=== PATIENT | female | born 1980 | race Caucasian/White ===

== ENCOUNTER 2019-04-26 22:51 | Emergency (ER) | payer OTHER ==
--- NOTE | 2019-04-26 23:03 | ED ---
Psych HPI - General Chief Complaint: Psychiatric Symptoms Stated Complaint: Anxiety Time Seen by Provider: 04/26/19 23:01 Source: patient, RN notes reviewed, old records reviewed Mode of arrival: ambulatory - History of Present Illness Initial Comments: This is a 38-year-old female coming in for evaluation. Patient has history of anxiety coming in for anxiety attack. Patient states she has history of PTSD. 2 days of difficult night sleeping take Ativan prior to arrival with no help. Patient did she is very anxious and more anxious so because her family Do not know about her anxious past and she is concerned that they may have seen her fired found her. Patient's pacing around the room, poor strain, emotional. Denies illicit or suicidal thoughts, no drug or alcohol abuse MD Complaint: other (Anxious) -: hour(s) Associated Psychiatric Symptoms: racing thoughts History of same: Yes Quality: getting worse Improves With: none, medication Worsens With: none Context: new medication(s) Associated Symptoms: denies other symptoms Treatments Prior to Arrival: none - Related Data Home Medications Medication Instructions Recorded Confirmed Aviane 1 tab PO DIRECTED 12/18/14 04/27/19 Citalopram Hydrobromide [CeleXA] 40 mg PO DAILY 12/18/14 04/27/19 LORazepam [Ativan] 1 mg PO DAILY PRN 04/26/19 04/26/19 Allergies Allergy/AdvReac Type Severity Reaction Status Date / Time No Known Allergies Allergy Verified 04/26/19 23:59 Review of Systems ROS Statement: Those systems with pertinent positive or pertinent negative responses have been documented in the HPI. ROS Other: All systems not noted in ROS Statement are negative. Past Medical History Additional Past Medical History / Comment(s): dysautonomia History of Any Multi-Drug Resistant Organisms: None Reported Past Surgical History: Hernia Repair Past Psychological History: Anxiety, PTSD Smoking Status: Never smoker Past Alcohol Use History: None Reported Past Drug Use History: None Reported General Exam Limitations: no limitations General appearance: anxious Head exam: Present: atraumatic, normocephalic, normal inspection Eye exam: Present: normal appearance, PERRL, EOMI. Absent: scleral icterus, conjunctival injection, periorbital swelling ENT exam: Present: normal exam, mucous membranes moist Neck exam: Present: normal inspection. Absent: tenderness, meningismus, lymphadenopathy Respiratory exam: Present: normal lung sounds bilaterally. Absent: respiratory distress, wheezes, rales, rhonchi, stridor Cardiovascular Exam: Present: regular rate, normal rhythm, normal heart sounds. Absent: systolic murmur, diastolic murmur, rubs, gallop, clicks GI/Abdominal exam: Present: soft, normal bowel sounds. Absent: distended, tenderness, guarding, rebound, rigid Extremities exam: Present: normal inspection, full ROM, normal capillary refill. Absent: tenderness, pedal edema, joint swelling, calf tenderness Back exam: Present: normal inspection Neurological exam: Present: alert, oriented X3, CN II-XII intact Psychiatric exam: Present: normal affect, normal mood Skin exam: Present: warm, dry, intact, normal color. Absent: rash Course Vital Signs 04/26/19 04/27/19 22:56 01:13 Temperature 98.2 F 98.1 F Pulse Rate 139 H 99 Respiratory 22 20 Rate Blood Pressure 136/79 114/74 O2 Sat by Pulse 98 99 Oximetry Medical Decision Making - Medical Decision Making 62 female the ER for evaluation, patient presents with anxiety, anxiety reaction, symptoms improved here in the ER. Patient can be discharged home Disposition Clinical Impression: Acute anxiety Disposition: HOME SELF-CARE Condition: Good Instructions (If sedation given, give patient instructions): Anxiety (ED) Is patient prescribed a controlled substance at d/c from ED?: No Referrals: Andreas Mendez DO [Primary Care Provider] - 1-2 days
[2019-04-26] MEDS ORDERED: LORazepam 2 MG/ML INJ IM STA (23:10)
[2019-04-27] MEDS ORDERED: DIAZEPAM 5 MG TAB PO STA (00:02)
[2019-04-27 01:14] VITALS: BP 114/74; PULSE 99; RESP 20; TEMP 98.1
== END 2019-04-27 01:30 | disposition home or self-care (01) ==
LOC: EC 22:51
DX: F41.9 Anxiety disorder, unspecified (principal); Z79.3 Long term (current) use of hormonal contraceptives; Z79.899 Other long term (current) drug therapy
CPT/HCPCS: 99283; 96372; J2060

== ENCOUNTER 2020-10-13 21:24 | Emergency (ER) | payer OTHER ==
[2020-10-13] MEDS ORDERED: SODIUM CHLORIDE 0.9% 1,000 ML IV STA (22:15)
[2020-10-13 22:42] LABS: Basophils # (A) 0.1 k/uL (0-0.2); Basophils % (A) 1 %; Eosinophils # (A) 0.4 k/uL (0-0.7); Eosinophils % (A) 3 %; HCT 40.5 % (34.0-46.0); HGB 13.7 gm/dL (11.4-16.0); Lymphocytes # (A) 2.2 k/uL (1.0-4.8); Lymphocytes % (A) 17 %; MCH 31.1 pg (25.0-35.0); MCHC 33.7 g/dL (31.0-37.0); MCV 92.3 fL (80.0-100.0); Mean Platelet Volume 6.9; Monocytes # (A) 0.5 k/uL (0-1.0); Monocytes % (A) 4 %; Neutrophils # (A) 9.6 k/uL (1.3-7.7); Neutrophils % (A) 74 %; Platelet Count 278 k/uL (150-450); RBC 4.39 m/uL (3.80-5.40); RDW 12.3 % (11.5-15.5); WBC 12.9 k/uL (3.8-10.6)
--- NOTE | 2020-10-13 22:47 | ED ---
Syncope HPI - General Chief Complaint: Syncope Stated Complaint: Syncope Time Seen by Provider: 10/13/20 22:13 Source: patient, RN notes reviewed, old records reviewed Mode of arrival: wheelchair Limitations: no limitations - History of Present Illness Initial Comments: this is a 32-year-old female DF for evaluation of a syncopal event with history of dysautonomia and prior syncope. Patient admits to being under significant stress as of late she states she had appointment to seeher family doctor for anxiety meds tomorrow but was in her bathroom and had a fall. The fall occurred after the syncopal event. No headache chest pain shortness of breath, no abdominal pain denies chance. MD Complaint: loss of consciousness, collapsed -: minutes(s) Prodromal Symptoms: none -: second(s) Witnessed: no Injuries Sustained Associated with Event: Neck, RUE Current Symptoms: back to baseline History: previous syncopal episode Context: standing up Treatments Prior to Arrival: none - Related Data Home Medications Medication Instructions Recorded Confirmed Aviane 1 tab PO DAILY 12/18/14 10/13/20 LORazepam [Ativan] 1 mg PO DAILY PRN 04/26/19 10/13/20 Desvenlafaxine [Pristiq ER] 100 mg PO DAILY 10/13/20 10/13/20 Allergies Allergy/AdvReac Type Severity Reaction Status Date / Time No Known Allergies Allergy Verified 10/13/20 23:13 Review of Systems ROS Statement: Those systems with pertinent positive or pertinent negative responses have been documented in the HPI. ROS Other: All systems not noted in ROS Statement are negative. Past Medical History Additional Past Medical History / Comment(s): dysautonomia History of Any Multi-Drug Resistant Organisms: None Reported Past Surgical History: Hernia Repair Past Psychological History: Anxiety, PTSD Smoking Status: Never smoker Past Alcohol Use History: None Reported Past Drug Use History: None Reported General Exam Limitations: no limitations General appearance: alert, in no apparent distress Head exam: Present: atraumatic, normocephalic, normal inspection Eye exam: Present: normal appearance, PERRL, EOMI. Absent: scleral icterus, conjunctival injection, periorbital swelling ENT exam: Present: normal exam, mucous membranes moist Neck exam: Present: normal inspection. Absent: tenderness, meningismus, lymphadenopathy Respiratory exam: Present: normal lung sounds bilaterally. Absent: respiratory distress, wheezes, rales, rhonchi, stridor Cardiovascular Exam: Present: regular rate, normal rhythm, normal heart sounds. Absent: systolic murmur, diastolic murmur, rubs, gallop, clicks GI/Abdominal exam: Present: soft, normal bowel sounds. Absent: distended, tenderness, guarding, rebound, rigid Extremities exam: Present: normal inspection, full ROM, normal capillary refill. Absent: tenderness, pedal edema, joint swelling, calf tenderness Back exam: Present: normal inspection Neurological exam: Present: alert, oriented X3, CN II-XII intact Psychiatric exam: Present: normal affect, normal mood Skin exam: Present: warm, dry, intact, normal color. Absent: rash Course Vital Signs 10/13/20 10/14/20 21:27 00:00 Temperature 97.8 F 98.4 F Pulse Rate 112 H 98 Respiratory 18 19 Rate Blood Pressure 141/89 140/92 O2 Sat by Pulse 99 98 Oximetry - Reevaluation(s) Reevaluation #1: 10/13/2020 23:10 medical record is reviewed Reevaluation #2: 10/13/2020 23:10 patient has no recurrent syncope here in the ER Reevaluation #3: 10/13/2020 23:10 atient feels preferable for discharge home EKG Findings - EKG Comments: EKG Findings:: EKG is sinus tachycardia 113 OH 128 QRS 78 QtC 457 Medical Decision Making - Medical Decision Making 32 female DF for evaluation patient transfer syncopal event with no acute injury. Patient can be discharged home - Lab Data Result diagrams: 10/13/20 22:30 10/13/20 22:30 Lab Results 10/13/20 10/13/20 10/13/20 Range/Units 22:30 22:30 22:30 WBC 12.9 H (3.8-10.6) k/uL RBC 4.39 (3.80-5.40) m/uL Hgb 13.7 (11.4-16.0) gm/dL Hct 40.5 (34.0-46.0) % MCV 92.3 (80.0-100.0) fL MCH 31.1 (25.0-35.0) pg MCHC 33.7 (31.0-37.0) g/dL RDW 12.3 (11.5-15.5) % Plt Count 278 (150-450) k/uL MPV 6.9 Neutrophils % 74 % Lymphocytes % 17 % Monocytes % 4 % Eosinophils % 3 % Basophils % 1 % Neutrophils # 9.6 H (1.3-7.7) k/uL Lymphocytes # 2.2 (1.0-4.8) k/uL Monocytes # 0.5 (0-1.0) k/uL Eosinophils # 0.4 (0-0.7) k/uL Basophils # 0.1 (0-0.2) k/uL PT 9.8 (9.0-12.0) sec INR 0.9 (<1.2) APTT 23.1 (22.0-30.0) sec D-Dimer <0.17 (<0.60) mg/L FEU Sodium 136 L (137-145) mmol/L Potassium 4.5 (3.5-5.1) mmol/L Chloride 101 (98-107) mmol/L Carbon Dioxide 28 (22-30) mmol/L Anion Gap 7 mmol/L BUN 15 (7-17) mg/dL Creatinine 0.75 (0.52-1.04) mg/dL Est GFR (CKD-EPI)AfAm >90 (>60 ml/min/1.73 sqM) Est GFR (CKD-EPI)NonAf >90 (>60 ml/min/1.73 sqM) Glucose 118 H (74-99) mg/dL Calcium 9.5 (8.4-10.2) mg/dL Phosphorus 3.5 (2.5-4.5) mg/dL Magnesium 2.0 (1.6-2.3) mg/dL Total Bilirubin 0.6 (0.2-1.3) mg/dL AST 26 (14-36) U/L ALT 13 (4-34) U/L Alkaline Phosphatase 47 (38-126) U/L Creatine Kinase 96 (30-135) U/L Troponin I (0.000-0.034) ng/mL NT-Pro-B Natriuret Pep pg/mL Total Protein 7.7 (6.3-8.2) g/dL Albumin 4.6 (3.5-5.0) g/dL 10/13/20 10/13/20 Range/Units 22:30 22:30 WBC (3.8-10.6) k/uL RBC (3.80-5.40) m/uL Hgb (11.4-16.0) gm/dL Hct (34.0-46.0) % MCV (80.0-100.0) fL MCH (25.0-35.0) pg MCHC (31.0-37.0) g/dL RDW (11.5-15.5) % Plt Count (150-450) k/uL MPV Neutrophils % % Lymphocytes % % Monocytes % % Eosinophils % % Basophils % % Neutrophils # (1.3-7.7) k/uL Lymphocytes # (1.0-4.8) k/uL Monocytes # (0-1.0) k/uL Eosinophils # (0-0.7) k/uL Basophils # (0-0.2) k/uL PT (9.0-12.0) sec INR (<1.2) APTT (22.0-30.0) sec D-Dimer (<0.60) mg/L FEU Sodium (137-145) mmol/L Potassium (3.5-5.1) mmol/L Chloride (98-107) mmol/L Carbon Dioxide (22-30) mmol/L Anion Gap mmol/L BUN (7-17) mg/dL Creatinine (0.52-1.04) mg/dL Est GFR (CKD-EPI)AfAm (>60 ml/min/1.73 sqM) Est GFR (CKD-EPI)NonAf (>60 ml/min/1.73 sqM) Glucose (74-99) mg/dL Calcium (8.4-10.2) mg/dL Phosphorus (2.5-4.5) mg/dL Magnesium (1.6-2.3) mg/dL Total Bilirubin (0.2-1.3) mg/dL AST (14-36) U/L ALT (4-34) U/L Alkaline Phosphatase (38-126) U/L Creatine Kinase (30-135) U/L Troponin I <0.012 (0.000-0.034) ng/mL NT-Pro-B Natriuret Pep 16 pg/mL Total Protein (6.3-8.2) g/dL Albumin (3.5-5.0) g/dL - Radiology Data Radiology results: report reviewed (CT brain C-spine negative for acute disease), image reviewed Disposition Clinical Impression: Vasovagal syncope, Syncope, Dysautonomia, Anxiety Disposition: HOME SELF-CARE Condition: Good Instructions (If sedation given, give patient instructions): Syncope (ED) Is patient prescribed a controlled substance at d/c from ED?: No Referrals: Andreas Mendez DO [Primary Care Provider] - 1-2 days
[2020-10-13 23:00] LABS: ALT 13 U/L (4-34); AST 26 U/L (14-36); African American GFR (CKD) >90 (>60 ml/min/1.73 sqM); Albumin 4.6 g/dL (3.5-5.0); Alkaline Phosphatase 47 U/L (38-126); Anion Gap 7 mmol/L; Blood Urea Nitrogen 15 mg/dL (7-17); Calcium 9.5 mg/dL (8.4-10.2); Carbon Dioxide 28 mmol/L (22-30); Chloride 101 mmol/L (98-107); Creatine Kinase 96 U/L (30-135); Glucose 118 mg/dL (74-99); Non-African American GFR(CKD) >90 (>60 ml/min/1.73 sqM); Phosphorus 3.5 mg/dL (2.5-4.5); Potassium 4.5 mmol/L (3.5-5.1); Sodium 136 mmol/L (137-145); Total Bilirubin 0.6 mg/dL (0.2-1.3); Total Protein 7.7 g/dL (6.3-8.2)
[2020-10-13 23:05] LABS: D-Dimer <0.17 mg/L FEU (<0.60); INR 0.9 (<1.2); Partial Thromboplastin Time 23.1 sec (22.0-30.0); Prothrombin Time 9.8 sec (9.0-12.0)
--- NOTE | 2020-10-13 23:28 | CT ---
EXAMINATION TYPE: CT brain cspine wo con DATE OF EXAM: 10/13/2020 COMPARISON: None HISTORY: syncope, fall CT DLP: 1248 mGycm Automated exposure control for dose reduction was used. Images obtained of the brain without contrast. Images obtained from the skull base to T1 vertebra wit hout contrast. FINDINGS: Ventricles and sulci appear normal. There is no mass effect nor midline shift. There is no sign of in tracranial hemorrhage. There is fluid level in the right maxillary sinus. The calvarium is intact. The cervical vertebra have normal spacing and alignment. Posterior elements are intact. There is no c ompression fracture. Facet joints are intact. There is small fluid level in the left side sphenoid si nus. IMPRESSION: No acute intracranial abnormality. Mucosal thickening and fluid level right maxillary sinus more like ly inflammatory. Negative CT scan cervical spine. Brain and cervical spine not changed compared to old exam.
[2020-10-14 00:02] VITALS: BP 140/92; PULSE 98; RESP 19; TEMP 98.4
== END 2020-10-14 | disposition home or self-care (01) ==
LOC: EC 21:24
DX: G90.1 Familial dysautonomia [Riley-Day] (principal); R55 Syncope and collapse; F41.9 Anxiety disorder, unspecified; Z79.3 Long term (current) use of hormonal contraceptives
CPT/HCPCS: 36415; 70450; 72125; 80053; 82550; 83735; 83880; 84100; 84484; 85025; 85379; 85610; 85730; 93005; 96360; 99285

== ENCOUNTER 2021-01-14 10:33 | Observation (INO) | payer OTHER ==
[2021-01-14] MEDS ORDERED: ASPIRIN 81 MG PO STA (10:58)
[2021-01-14] MEDS ORDERED: LORazepam 2 MG/ML INJ IV STA (10:59)
[2021-01-14] MEDS: SODIUM CHLORIDE 0.9% 1,000 ML IV STA ×2 (11:16→15:49)
[2021-01-14 11:40] LABS: Basophils % (A) 1 %; Eosinophils # (A) 0.2 k/uL (0-0.7); Eosinophils % (A) 2 %; HGB 13.9 gm/dL (11.4-16.0); Lymphocytes # (A) 1.6 k/uL (1.0-4.8); Lymphocytes % (A) 22 %; MCH 30.4 pg (25.0-35.0); MCHC 33.1 g/dL (31.0-37.0); MCV 91.8 fL (80.0-100.0); Mean Platelet Volume 7.4; Monocytes # (A) 0.2 k/uL (0-1.0); Monocytes % (A) 3 %; Neutrophils # (A) 5.1 k/uL (1.3-7.7); Neutrophils % (A) 71 %; Platelet Count 335 k/uL (150-450); RBC 4.57 m/uL (3.80-5.40); WBC 7.2 k/uL (3.8-10.6)
--- NOTE | 2021-01-14 11:44 | ED ---
Chest Pain HPI - General Chief Complaint: Chest Pain Stated Complaint: PCP sent chest palipations/L arm numb Time Seen by Provider: 01/14/21 10:50 Source: patient Mode of arrival: wheelchair Limitations: no limitations - History of Present Illness Initial Comments: 40-year-old female iwith history of "dysautonomia"-2007, syncopal episode in [facility], Covid diagnosis September 2020 presenting for palpitations, discomfort left arm. Patient states that she has had sensation heart is racing with high resting HR (100-110bpm) x 1.5 weeks. Patient states at times it feels like her heart is racing out of her chest. Patient dneies dyspnea or chest pain/pressure. But his mrlida she woke up with heart racing, felt anxious and has a sleepy/full/heavy sensation in the left arm. She states she can feel the arm, denies weakness. patient denies jaw or back pain. Patient staets she is extremely anxious when she goes to the hospital and believes it is making her "heart rate and blood pressure worse". Patient denies thyroid disorder, denies leg swelling, hemoptysis, calf pain, hx of DVT/PE or cancer, denies exogenous hormone use, denies recent injuries, travel, immobilization or surgeries> patient denies additional complaints. She appears anxious on arrival. - Related Data Home Medications Medication Instructions Recorded Confirmed Aviane 1 tab PO DAILY 12/18/14 01/14/21 LORazepam [Ativan] 1 mg PO DAILY PRN 04/26/19 01/14/21 Desvenlafaxine [Pristiq ER] 100 mg PO DAILY 10/13/20 01/14/21 Allergies Allergy/AdvReac Type Severity Reaction Status Date / Time No Known Allergies Allergy Verified 01/14/21 11:38 Review of Systems ROS Statement: Those systems with pertinent positive or pertinent negative responses have been documented in the HPI. ROS Other: All systems not noted in ROS Statement are negative. Past Medical History Additional Past Medical History / Comment(s): dysautonomia History of Any Multi-Drug Resistant Organisms: None Reported Past Surgical History: Hernia Repair Past Psychological History: Anxiety, PTSD Smoking Status: Never smoker Past Alcohol Use History: None Reported Past Drug Use History: None Reported - Past Family History Father Family Medical History: Hyperlipidemia, Hypertension Mother Family Medical History: Hyperlipidemia, Myocardial Infarction ([place]) Additional Family Medical History / Comment(s): HC with stents General Exam - General Exam Comments Initial Comments: General: The patient is awake and alert, in no distress Eye: +3 mm pupils are equal, round and reactive to light, extra-ocular movements are intact. No nystagmus. There is normal conjunctiva bilaterally. No signs of icterus. Ears, nose, mouth and throat: There are moist mucous membranes and no oral lesions. Neck: The neck is supple, there is no tenderness or JVD. Cardiovascular: There is increased rate and normal rhythm. No murmur, rub or gallop is appreciated. Respiratory: Lungs are clear to auscultation, respirations are non-labored, breath sounds are equal. No wheezes, stridor, rales, or rhonchi. Gastrointestinal: [Soft, non-distended, non-tender abdomen without masses or organomegaly noted. There is no rebound or guarding present. Musculoskeletal: Normal ROM, no tenderness. Strength 5/5. Sensation intact. radial pulses equal bilaterally 2+. Neurological: A&O x 3. CN II-XII intact grossly, There are no obvious motor or sensory deficits. Coordination appears grossly intact. Speech is normal. Skin: Skin is warm and dry and no rashes or lesions are noted. No calf pain, LE edema. NO calf swellng. Psychiatric: Cooperative, appropriate mood & affect, normal judgment. Limitations: no limitations Course Vital Signs 01/14/21 01/14/21 01/14/21 10:34 11:45 12:00 Temperature 98.4 F Pulse Rate 142 H 134 H 137 H Respiratory 22 19 18 Rate Blood Pressure 170/111 137/77 132/78 O2 Sat by Pulse 99 Oximetry 01/14/21 01/14/21 13:00 13:30 Temperature Pulse Rate 128 H Respiratory 27 H 24 Rate Blood Pressure 121/82 131/77 O2 Sat by Pulse Oximetry Chest Pain MDM - MDM 40yo with history of dysautonomia, previous episodes of tachycardia in 2007 with recent syncopal episode in 1999 2019. Coma diagnosis September 2020. Patient has had palpitations times approximately 10 days. Remains tachycardic in ER (sinus). Dimer (-) no dyspnea. Left arm paresthesia resolved after ativan. No weakness, no sensation deficits. Patient CXR clear. Troponin (-). Patient case discussed with Dr. babb who is agreeable to admission to Dr. Benoit with cardiology on consulation for further evaluation of persistent tachycardia. Patient BP remained stable. Dr. Benoit evaluated patient in the ER. Disposition Clinical Impression: Arm paresthesia, left, Palpitations, Tachycardia Disposition: ADMITTED IP TO THIS HOSP Condition: Stable Is patient prescribed a controlled substance at d/c from ED?: No Time of Disposition: 12:38 Decision to Admit Reason: Admit from EC Decision Date: 01/14/21 Decision Time: 12:38
[2021-01-14 11:52] LABS: ALT 11 U/L (4-34); AST 21 U/L (14-36); African American GFR (CKD) >90 (>60 ml/min/1.73 sqM); Albumin 4.8 g/dL (3.5-5.0); Alkaline Phosphatase 40 U/L (38-126); Anion Gap 11 mmol/L; Blood Urea Nitrogen 12 mg/dL (7-17); Calcium 9.6 mg/dL (8.4-10.2); Carbon Dioxide 26 mmol/L (22-30); Chloride 102 mmol/L (98-107); Glucose 150 mg/dL (74-99); Non-African American GFR(CKD) >90 (>60 ml/min/1.73 sqM); Potassium 4.2 mmol/L (3.5-5.1); Sodium 139 mmol/L (137-145); Total Bilirubin 0.5 mg/dL (0.2-1.3); Total Protein 8.2 g/dL (6.3-8.2)
[2021-01-14 11:58] LABS: INR 0.9 (<1.2); Partial Thromboplastin Time 22.9 sec (22.0-30.0); Prothrombin Time 10.1 sec (9.0-12.0)
--- NOTE | 2021-01-14 11:58 | XR ---
EXAMINATION TYPE: XR chest 2V DATE OF EXAM: 01/14/2021 COMPARISON: 10/05/2010 HISTORY: Chest pain TECHNIQUE: Frontal and lateral views of the chest are obtained. FINDINGS: There is no focal air space opacity. No evidence for pneumothorax. No pleural effusion. The cardiac silhouette size is within normal limits. The osseous structures are grossly intact. IMPRESSION: 1. No acute cardiopulmonary process.
[2021-01-14 12:03] LABS: D-Dimer <0.17 mg/L FEU (<0.60)
--- NOTE | 2021-01-14 14:47 | P.CRDCN ---
History of Present Illness Consult date: 01/14/21 History of present illness: CHIEF COMPLAINT: Tachycardia HISTORY OF PRESENT ILLNESS: This is a 40-year-old female with a past medical history significant for dysautonomia, generalized anxiety disorder, and PTSD. Patient states she saw Dr. Gaitan previously but it was approximately 10 years ago. We have been asked to see the patient in consultation for tachycardia. Patient examined this afternoon at bedside. She reports being diagnosed with Covid in September 2020. She states over the last 7-10 days she has been having palpitations. She reports having them while sitting watching TV. She does not report having anxiety at that time. However, she states over the past few days her anxiety has been getting worse because of the palpitations. She denies chest pain or pressure. Reports mild shortness of breath when she feels her heart racing. She reports waking up this morning and her left arm was numb. She states she is unsure if she slept on it funny overnight. At the time of my examination, she denies any arm numbness. she denies any nicotine use. Denies alcohol use. She denies any previous known thyroid issues. She states her mom is in her 60s and had 2 heart attacks in the last 12 months. DIAGNOSTICS: EKG reveals sinus tachycardia Chest xray negative for acute process Laboratory data: WBC 7.2. Hemoglobin 13.9. Platelet count 335. D-dimer 0.17. Sodium 139. Potassium 4.2. BUN 12. Creatinine 0.72. Magnesium 2.0. troponin negative 1. TSH 1.840. Current home cardiac medications include none REVIEW OF SYSTEMS: At the time of my exam: CONSTITUTIONAL: Denies fever or chills. HEENT: Denies blurred vision, vision changes, or eye pain. Denies hemoptysis CARDIOVASCULAR: Denies chest pain, orthopnea, PND or palpitations RESPIRATORY: No shortness of breath. GASTROINTESTINAL: Denies abdominal pain. Denies nausea or vomiting. HEMATOLOGIC: Denies bleeding disorders. GENITOURINARY: Denies any blood in urine. SKIN: Denies pruitis. Denies rash. PHYSICAL EXAM: VITAL SIGNS: Reviewed. GENERAL: Well-developed in no acute distress. HEENT: Head is normocephalic. Pupils are equal, round. Sclerae anicteric. Mucous membranes of the mouth are moist. Neck supple. No JVD or thyromegaly LUNGS: Respirations even and unlabored. Lungs essentially clear to auscultation bilaterally. HEART: tachycardic. Regular rate and rhythm. S1 and S2 heard. ABDOMEN: Soft. Nondistended. Nontender. EXTREMITIES: Normal range of motion. No clubbing or cyanosis. Peripheral pulses intact. No lower extremity edema NEUROLOGIC: Awake and alert. Oriented x 3. ASSESSMENT: Palpitations Sinus tachycardia Left arm numbness, resolved History of dysautonomia Generalized anxiety disorder History of PTSD History of Covid, September 2020 PLAN: TSH obtained and within normal limits Obtain 2D echo to assess cardiac structure and function Begin metoprolol 12.5mg BID Continue telemetry monitoring Further recommendations pending patient course Nurse practitioner note has been reviewed by physician. Signing provider agrees with the documented findings, assessment, and plan of care. Past Medical History Additional Past Medical History / Comment(s): dysautonomia History of Any Multi-Drug Resistant Organisms: None Reported Past Surgical History: Hernia Repair Past Psychological History: Anxiety, PTSD Smoking Status: Never smoker Past Alcohol Use History: None Reported Past Drug Use History: None Reported Medications and Allergies Home Medications Medication Instructions Recorded Confirmed Type Aviane 1 tab PO DAILY 12/18/14 01/14/21 History LORazepam [Ativan] 1 mg PO DAILY PRN 04/26/19 01/14/21 History Desvenlafaxine [Pristiq ER] 100 mg PO DAILY 10/13/20 01/14/21 History Allergies Allergy/AdvReac Type Severity Reaction Status Date / Time No Known Allergies Allergy Verified 01/14/21 11:38 Physical Exam Vitals: Vital Signs Temp Pulse Resp BP Pulse Ox 01/14/21 13:30 128 H 24 131/77 01/14/21 13:00 27 H 121/82 01/14/21 12:00 137 H 18 132/78 01/14/21 11:45 134 H 19 137/77 01/14/21 10:34 98.4 F 142 H 22 170/111 99 Intake and Output 01/13/21 01/14/21 01/14/21 22:59 06:59 14:59 Other: Weight 56.699 kg Results 01/14/21 11:17 01/14/21 11:17 Cardiac Enzymes 01/14/21 01/14/21 Range/Units 11:17 11:17 AST 21 (14-36) U/L Troponin I <0.012 (0.000-0.034) ng/mL Coagulation 01/14/21 Range/Units 11:17 PT 10.1 (9.0-12.0) sec APTT 22.9 (22.0-30.0) sec CBC 01/14/21 Range/Units 11:17 WBC 7.2 (3.8-10.6) k/uL RBC 4.57 (3.80-5.40) m/uL Hgb 13.9 (11.4-16.0) gm/dL Hct 42.0 (34.0-46.0) % Plt Count 335 (150-450) k/uL Comprehensive Metabolic Panel 01/14/21 Range/Units 11:17 Sodium 139 (137-145) mmol/L Potassium 4.2 (3.5-5.1) mmol/L Chloride 102 (98-107) mmol/L Carbon Dioxide 26 (22-30) mmol/L BUN 12 (7-17) mg/dL Creatinine 0.72 (0.52-1.04) mg/dL Glucose 150 H (74-99) mg/dL Calcium 9.6 (8.4-10.2) mg/dL AST 21 (14-36) U/L ALT 11 (4-34) U/L Alkaline Phosphatase 40 (38-126) U/L Total Protein 8.2 (6.3-8.2) g/dL Albumin 4.8 (3.5-5.0) g/dL Current Medications Generic Name Dose Route Start Last Admin Trade Name Freq PRN Reason Stop Dose Admin Sodium Chloride 1,000 mls @ 75 mls/hr 01/14/21 10:58 01/14/21 11:16 Saline 0.9% IV 01/15/21 00:17 75 mls/hr .[id number] STA Administration Metoprolol Tartrate 12.5 mg 01/14/21 14:32 Metoprolol Tartrate 12.5 Mg Tab PO BID JAI Intake and Output 01/13/21 01/14/21 01/14/21 22:59 06:59 14:59 Other: Weight 56.699 kg Patient Weight 01/15/21 06:59 Weight 56.699 kg 01/14/21 11:17 01/14/21 11:17
[2021-01-14] MEDS: METOPROLOL TARTRATE 12.5 MG TAB PO SCH ×2 (15:49→22:04)
[2021-01-14] MEDS ORDERED: LORazepam 1 MG TAB PO PRN (15:59)
[2021-01-14] MEDS ORDERED: HYDROcodone/APAP 5-325MG 1 EACH TAB PO PRN (16:01)
--- NOTE | 2021-01-14 16:32 | CT ---
EXAMINATION TYPE: CT brain wo con DATE OF EXAM: 01/14/2021 COMPARISON: 10/13/2020 HISTORY: TIA CT DLP: 1099.[address] of the brain was performed. The ventricles, basal cisterns and sulci overlying the cerebral convexities demonstrate a normal appe arance. There is no evidence for intracranial hemorrhage or sulcal effacement. No mass effects are seen. Osseous calvarium is intact. If symptoms persist consider MRI as clinically warranted. IMPRESSION: 1. No acute intracranial process is seen at this time.
--- NOTE | 2021-01-14 16:51 | HP ---
HISTORY AND PHYSICAL DATE OF SERVICE: 01/14/2021 CHIEF COMPLAINTS: Palpitations and left hand numbness. HISTORY OF PRESENT ILLNESS: This 40-year-old woman with a past medical history of dysautonomia, history of anxiety, PTSD, being followed by Dr. Andreas Mendez in the outpatient setting, had an episode of COVID-19 infection in late September. The patient was apparently sick, and the patient also had subsequent problems such as brain fog and such, but the patient never had any pneumonia, according to her, and was not hospitalized, either. Currently the patient is having symptoms of palpitations on and off. The patient was evaluated for dysautonomia in 2007. Results are not available at this time. Heart rate was racing between 100 and 110 beats per minute. The patient also noted having left arm numbness and heaviness. The patient was concerned and came to [facility] and was admitted for further evaluation and treatment. The heart rate, including the EKG and the monitor, showed anywhere up to 140 with sinus rhythm. Glucose was 150. COVID-19 was negative. The patient was admitted for further evaluation and treatment. There is no history of any fever, rigor or chills. No history of headache, loss of consciousness, seizures at this time. The patient also had significant anxiety. PAST MEDICAL HISTORY: History of dysautonomia, history of COVID-19 in September of history of anxiety, PTSD. HOME MEDICATIONS: 1. Ativan 1 mg daily p.r.n. 2. Pristiq ER 100 mg daily. 3. Aviane 1 tablet p.o. daily. ALLERGIES: NONE. FAMILY HISTORY: No history of heart disease or strokes in the family. SOCIAL HISTORY: Patient is a teacher. No history of smoking. No history of alcohol intake. REVIEW OF SYSTEMS: ENT: No diminished hearing. No diminished vision. CARDIOVASCULAR SYSTEM: As mentioned earlier. RESPIRATORY SYSTEM: As mentioned earlier. GI: No nausea, vomiting, diarrhea. : No dysuria or retention. NERVOUS SYSTEM: No numbness, weakness. ALLERGY/IMMUNOLOGY: No asthma, hayfever. MUSCULOSKELETAL: As mentioned earlier. HEMATOLOGY/ONCOLOGY: No history of anemia. ENDOCRINE: No history of diabetes, hypothyroidism. CONSTITUTIONAL: As mentioned earlier. DERMATOLOGY: Negative. RHEUMATOLOGY: Negative. PSYCHIATRY: As mentioned earlier. PHYSICAL EXAMINATION: Patient alert and oriented x3. Pulse 134, regular. Blood pressure 137/50, respirations 16, temperature 99.2, pulse ox 98% on room air. HEENT: Conjunctivae normal. Oral mucosa moist. NECK: No jugular venous distention. No carotid bruit. No lymph node enlargement. CARDIOVASCULAR SYSTEM: S1, S2 muffled. Tachycardic. No S3. No S4. RESPIRATORY SYSTEM: Breath sounds diminished at the bases. No rhonchi. No crackles. ABDOMEN: Soft, non-tender. No mass palpable. LEGS: No edema. No swelling. NERVOUS SYSTEM: Higher functions as mentioned earlier. Moves all 4 limbs. No focal motor or sensory deficit. LYMPHATICS: No lymph node palpable in neck, axillae or groin. SKIN: No ulcer, rash, bleeding. JOINTS: No active deforming arthropathy. LABS: CBC within normal limits. Sodium 139, potassium 4.2. ASSESSMENT: 1. Palpations, sinus tachycardia of undetermined etiology. 2. Left arm paresthesia. Rule out TIA. 3. Increased random blood sugar. 4. History of recent COVID-19 infection. 5. Anxiety, depression. 6. History of dysautonomia. RECOMMENDATIONS AND DISCUSSION: In this 40-year-old woman who presented with multiple complex medical issues, we will monitor the patient closely, continue the current medications, continue symptomatic treatment. I would recommend cardiology consultation and possible tilt-table test and evaluate for possible tachycardia and dysautonomia. Otherwise, I would also recommend a CT scan of the brain as well as complete neurovascular workup. The overall prognosis is guarded because of the multiple complex medical issues. COVID-19 is negative. Discussed with the patient, who understands. A copy of this dictation is being forwarded to Dr. Andreas Mendez, who is the primary physician. MMODL / IJN: [id number] / MTDD
--- NOTE | 2021-01-14 17:58 | US ---
EXAMINATION TYPE: US carotid duplex BILAT DATE OF EXAM: 01/14/2021 COMPARISON: NONE CLINICAL HISTORY: stroke. EXAM MEASUREMENTS: RIGHT: Peak Systolic Velocity (PSV) cm/sec ----- Right CCA: 83.4 ----- Right ICA: 119.5 ----- Right ECA: 121.7 ICA/CCA ratio: 1.4 RIGHT: End Diastole cm/sec ----- Right CCA: 30.7 ----- Right ICA: 54.3 ----- Right ECA: 24.5 LEFT: Peak Systolic Velocity (PSV) cm/sec ----- Left CCA: 90.7 ----- Left ICA: 102.5 ----- Left ECA: 129.5 ICA/CCA ratio: 1.1 LEFT: End Diastole cm/sec ----- Left CCA: 29.9 ----- Left ICA: 49.1 ----- Left ECA: 22.7 VERTEBRALS (direction of flow): Right Vertebral: Antegrade Left Vertebral: Antegrade Rhythm: Normal IMPRESSION: 1. No atherosclerotic changes. 2. No significant velocity elevations in bilateral ICAs.
[2021-01-14 20:33] LABS: Amorphous Sediment,Urine Rare /hpf; Appearance,Urine Cloudy (Clear); Bacteria,Urine Rare /hpf; Bilirubin,Urine Negative (Negative); Blood,Urine Negative (Negative); Color,Urine Light Yellow; Glucose,Urine (UA) Negative (Negative); Ketones,Urine Negative (Negative); Leukocyte Esterase,Urine Large (Negative); Mucus,Urine Rare /hpf; Nitrite,Urine Negative (Negative); Protein,Urine Negative (Negative); RBC,Urine 1 /hpf (0-5); Specific Gravity,Urine 1.015 (1.001-1.035); Squamous Epithelial Cell,Urine 5 /hpf (0-4); Urobilinogen,Urine <2.0 mg/dL (<2.0); WBC,Urine 8 /hpf (0-5)
[2021-01-14] MEDS: HEPARIN SODIUM,PORCINE 5,000 UNIT/ML 1 ML VIAL SQ SCH (22:04)
[2021-01-15 04:56] VITALS: RESP 18
[2021-01-15] MEDS: METOPROLOL TARTRATE 12.5 MG TAB PO SCH (07:59)
[2021-01-15] MEDS: HEPARIN SODIUM,PORCINE 5,000 UNIT/ML 1 ML VIAL SQ SCH (07:59)
[2021-01-15 08:05] LABS: Basophils % (A) 1 %; Eosinophils # (A) 0.1 k/uL (0-0.7); Eosinophils % (A) 3 %; HCT 37.5 % (34.0-46.0); HGB 12.5 gm/dL (11.4-16.0); Lymphocytes % (A) 35 %; MCH 31.2 pg (25.0-35.0); MCHC 33.3 g/dL (31.0-37.0); MCV 93.7 fL (80.0-100.0); Mean Platelet Volume 7.3; Monocytes # (A) 0.3 k/uL (0-1.0); Monocytes % (A) 5 %; Neutrophils # (A) 3.1 k/uL (1.3-7.7); Neutrophils % (A) 55 %; Platelet Count 245 k/uL (150-450); RDW 12.8 % (11.5-15.5); WBC 5.7 k/uL (3.8-10.6)
[2021-01-15 08:40] LABS: African American GFR (CKD) >90 (>60 ml/min/1.73 sqM); Anion Gap 6 mmol/L; Blood Urea Nitrogen 9 mg/dL (7-17); Calcium 8.4 mg/dL (8.4-10.2); Carbon Dioxide 26 mmol/L (22-30); Chloride 106 mmol/L (98-107); Cholesterol 202 mg/dL (<200); Glucose 86 mg/dL (74-99); HDL Cholesterol 45 mg/dL (40-60); LDL Cholesterol,Calculated 138 mg/dL (0-99); Non-African American GFR(CKD) >90 (>60 ml/min/1.73 sqM); Potassium 4.4 mmol/L (3.5-5.1); Sodium 138 mmol/L (137-145); Triglycerides 96 mg/dL (<150)
[2021-01-15] MEDS ORDERED: ASPIRIN 325 MG TAB PO SCH (09:00)
[2021-01-15] MEDS ORDERED: AVIANE PO SCH (09:00)
[2021-01-15] MEDS ORDERED: DESVENLAFAXINE SUCCINATE 50 MG TAB.ER.24H PO SCH (09:00)
--- NOTE | 2021-01-15 10:00 | ECHOF ---
Referral Reason:LV function, tachycardia MEASUREMENTS -------- HEIGHT: 162.6 cm WEIGHT: 56.7 kg BP: 131/77 RVIDd: 2.9 cm (< 3.3) IVSd: 1.1 cm (0.6 - 1.1) LVIDd: 3.2 cm (3.9 - 5.3) LVPWd: 1.0 cm (0.6 - 1.1) IVSs: 1.0 cm LVIDs: 2.3 cm LVPWs: 1.7 cm LAESV Index (A-L): 14.03 ml/m Ao Diam: 2.7 cm (2.0 - 3.7) AV Cusp: 2.1 cm (1.5 - 2.6) MV EXCURSION: 16.356 mm (> 18.000) MV EF SLOPE: 87 mm/s (70 - 150) EPSS: 1.2 cm MV E Malachi: 0.85 m/s MV DecT: 220 ms MV A Malachi: 1.04 m/s MV E/A Ratio: 0.82 RAP: 5.00 mmHg RVSP: 20.37 mmHg FINDINGS -------- Resting tachycardia (HR>100bpm). This was a technically adequate study. The left ventricular size is normal. There is borderline concentric left ventricular hypertrophy. Overall left ventricular systolic function is normal with, an EF between 55 - 60 %. The diastolic filling pattern is normal for the age of the patient 7.32. The right ventricle is normal in size. Normal LA size by volume 22+/-6 ml/m2. The right atrial size is normal. Interatrial and interventricular septum intact. There is no evidence of aortic regurgitation. There is no evidence of aortic stenosis. No mitral regurgitation. Mild tricuspid regurgitation present. There is no evidence of pulmonary hypertension. The right v entricular systolic pressure, as measured by Doppler, is 20.37mmHg. There is no pulmonic regurgitation present. The aortic root size is normal. Normal inferior vena cava with normal inspiratory collapse consistent with estimated right atrial pre ssure of 5 mmHg. There is no pericardial effusion. CONCLUSIONS -------- 1. The left ventricular size is normal. 2. There is borderline concentric left ventricular hypertrophy. 3. Overall left ventricular systolic function is normal with, an EF between 55 - 60 %. 4. The diastolic filling pattern is normal for the age of the patient 7.32 5. Mild tricuspid regurgitation present. LOCOMOTIVE CRANE OPERATOR: Nicole Torres RDCS
[2021-01-15 11:34] VITALS: BP 115/71; PULSE 96; TEMP 98.5
--- NOTE | 2021-01-15 12:11 | P.PN ---
Subjective Progress Note Date: 01/15/21 CHIEF COMPLAINT: Tachycardia HISTORY OF PRESENT ILLNESS: 01/14/2021 This is a 40-year-old female with a past medical history significant for dysautonomia, generalized anxiety disorder, and PTSD. Patient states she saw Dr. Gaitan previously but it was approximately 10 years ago. We have been asked to see the patient in consultation for tachycardia. Patient examined this afternoon at bedside. She reports being diagnosed with Covid in September 2020. She states over the last 7-10 days she has been having palpitations. She reports having them while sitting watching TV. She does not report having anxiety at that time. However, she states over the past few days her anxiety has been getting worse because of the palpitations. She denies chest pain or pressure. Reports mild shortness of breath when she feels her heart racing. She reports waking up this morning and her left arm was numb. She states she is unsure if she slept on it funny overnight. At the time of my examination, she denies any arm numbness. she denies any nicotine use. Denies alcohol use. She denies any previous known thyroid issues. She states her mom is in her 60s and had 2 heart attacks in the last 12 months. 01/15/2021 Patient examined this morning at the bedside. Patient states her palpitations have improved. She denies chest pain or pressure. Denies shortness of breath. Denies any further numbness of her left arm. Echocardiogram completed revealed ejection fraction 55-60% and mild tricuspid regurgitation. TSH within normal limits. PHYSICAL EXAM: VITAL SIGNS: Reviewed. GENERAL: Well-developed in no acute distress. HEENT: Head is normocephalic. Pupils are equal, round. Sclerae anicteric. Mucous membranes of the mouth are moist. Neck supple. No JVD or thyromegaly LUNGS: Respirations even and unlabored. Lungs essentially clear to auscultation bilaterally. HEART: Regular rate and rhythm. S1 and S2 heard. ABDOMEN: Soft. Nondistended. Nontender. EXTREMITIES: Normal range of motion. No clubbing or cyanosis. Peripheral pulses intact. No lower extremity edema NEUROLOGIC: Awake and alert. Oriented x 3. ASSESSMENT: Palpitations Sinus tachycardia Left arm numbness, resolved History of dysautonomia Generalized anxiety disorder History of PTSD History of Covid, September 2020 PLAN: Continue metoprolol 12.5mg BID Continue telemetry monitoring Neurology consulted for left arm numbness. Await evaluation. Further recommendations pending patient course Nurse practitioner note has been reviewed by physician. Signing provider agrees with the documented findings, assessment, and plan of care. Objective - Vital Signs Vital signs: Vital Signs Temp 98.5 F 01/15/21 11:33 Pulse 96 01/15/21 11:33 Resp 18 01/15/21 11:33 BP 115/71 01/15/21 11:33 Pulse Ox 98 01/15/21 11:33 Intake & Output 01/14/21 01/15/21 01/15/21 18:59 06:59 18:59 Intake Total 240 225 240 Balance 240 225 240 Weight 56.699 kg 55.2 kg Intake: Intake, IV Titration 225 Amount Sodium Chloride 0.9% 1, 225 000 ml @ 75 mls/hr IV . [id number] STA Rx#:[id number] Oral 240 240 Other: Voiding Method Toilet Toilet # Voids 1 - Labs CBC & Chem 7: 01/15/21 07:15 01/15/21 07:15 Labs: Abnormal Lab Results - Last 24 Hours (Table) 01/14/21 01/15/21 Range/Units 19:00 07:15 Cholesterol 202 H (<200) mg/dL LDL Cholesterol, Calc 138 H (0-99) mg/dL Urine Appearance Cloudy H (Clear) Ur Leukocyte Esterase Large H (Negative) Urine WBC 8 H (0-5) /hpf Ur Squamous Epith Cells 5 H (0-4) /hpf Amorphous Sediment Rare H (None) /hpf Urine Bacteria Rare H (None) /hpf Urine Mucus Rare H (None) /hpf
[2021-01-15] MEDS ORDERED: ACETAMINOPHEN TAB 325 MG TAB PO PRN (12:34)
--- NOTE | 2021-01-15 13:18 | P.CNNES ---
History of Present Illness Consult date: 01/15/21 Requesting physician: Josselin Benoit Reason for Consult: left arm numbness and heaviness concern for tia History of Present Illness: This is a 40-year-old woman with history of dysautonomia since 2007 with the syncopal episodes in the past, covert 19 diagnosis September 2020, generalized anxiety disorderd and PTSD that presented to the emergency department on 01/14/2021 for palpitation and discomfort and left arm. She stated that the she is having the heart palpitation last 1 to 1 1/2 week. She has been feeling anxious for the last 3 days. Patient stated that yesterday she woke up in the morning and she noticed that her left neck was in pain as well as left shoulder as well as she felt the left upper extremity was numb from the shoulder down. She noticed that her left arm is heavy but denies weakness of the left upper extremity, any difficulty getting her words out, any visual disturbance, any difficulty swallowing, any lower extremity weakness. She said the episode lasted about half hour. She's not sure if she slept on her left shoulder left arm. She does have history of migraine but denies any migraine episode yesterday. Patient is on Ativan 1 mg when necessary. She denies being on any antiplatelets or statins. She said that the about a month ago she had twitching on the left the part of her eye as well as the lip upper lip and it lasted for 1 week on and off. She denies any loss of consciousness. She said that one episode used to happen 80s to be very brief lasting for few seconds. She denies losing awareness during the episodes as I mentioned above. Denies of any jerk in of any of the extremities, urinary or bowel incontinence. She denies any history of seizures in the past. She denies off any history of multiple sclerosis in her or any family members according to her. In the past as she had a syncopal episode where she was in the shower she and she stated that she bent over blood pressure went down and that was in September 2020 and that she was notified that she had a syncopal episode that. 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 She doesn't know exactly the workup she had. Again she doesn't have any history of seizures or family history of seizures. That she was a product of the normal gestation, normal vaginal delivery in no complication. Workup in the hospital consisted of: CT of the head is reported as no acute intracranial process seen at this time. Carotid duplex is reported as no atherosclerotic changes. No significant velocity elevation bilateral internal carotid arteries. Echocardiogram is reported as left ventricular size is normal. Borderline concentric left ventricular hypertrophy. Ejection fraction of 55-60%. EKG is reported as sinus tachycardia. Marked ST abnormality, possible inferior supple endocardial injury. Abnormal EKG. Serum glucose is 150. AST of 21 and ALT of 12. TSH of 1.84 which is normal. Lipid panel: Triglyceride 96, cholesterol 202, LDL of 138 and HDL 45. The sodium was 139 which is normal. The calcium is 9.6 which is normal. Urine analysis appears cloudy, leukocyte esterase was large, urine white blood cells 8. Castaneda virus PCR is not detected. She was given aspirin 324 mg once in our facility. Review of Systems Review of system: The 12 point system was reviewed and apparent positive and negative per HPI. Past Medical History Additional Past Medical History / Comment(s): dysautonomia History of Any Multi-Drug Resistant Organisms: None Reported Past Surgical History: Hernia Repair Past Psychological History: Anxiety, PTSD Smoking Status: Never smoker Past Alcohol Use History: None Reported Past Drug Use History: None Reported - Past Family History Father Family Medical History: Hyperlipidemia, Hypertension Mother Family Medical History: Hyperlipidemia, Myocardial Infarction ([place]) Additional Family Medical History / Comment(s): HC with stents Medications and Allergies Home Medications Medication Instructions Recorded Confirmed Type Aviane 1 tab PO DAILY 12/18/14 01/14/21 History LORazepam [Ativan] 1 mg PO DAILY PRN 04/26/19 01/14/21 History Desvenlafaxine [Pristiq ER] 100 mg PO DAILY 10/13/20 01/14/21 History Allergies Allergy/AdvReac Type Severity Reaction Status Date / Time No Known Allergies Allergy Verified 01/14/21 11:38 Physical Examination - Vital Signs Vital Signs: Vital Signs Temp Pulse Pulse Resp BP BP Pulse Ox 01/15/21 08:00 104 H 18 01/15/21 07:56 99.1 F 104 H 18 114/56 98 01/15/21 04:00 98.0 F 109 H 18 116/66 99 01/15/21 02:00 89 16 01/14/21 23:03 99.0 F 94 17 132/79 98 01/14/21 20:00 99.7 F H 99 18 139/68 97 01/14/21 15:45 98 F 114 H 16 147/95 99 01/14/21 14:23 99.2 F 134 H 16 137/50 98 01/14/21 13:30 128 H 24 131/77 01/14/21 13:00 27 H 121/82 01/14/21 12:00 137 H 18 132/78 01/14/21 11:45 134 H 19 137/77 Intake and Output 01/14/21 01/15/21 01/15/21 22:59 06:59 14:59 Intake Total 465 240 Balance 465 240 Intake: Intake, IV Titration 225 Amount Sodium Chloride 0.9% 1, 225 000 ml @ 75 mls/hr IV . [id number] STA Rx#:[id number] Oral 240 240 Other: Voiding Method Toilet Toilet Toilet # Voids 1 1 Weight 55.2 kg GENERAL: The patient is lying in bed and is not in acute distress. CHEST: The heart rate is regular rate rhythm. No murmurs to auscultation. No carotid bruit bilaterally. LUNG: Clear to auscultation bilaterally no wheezing noted throughout. Not labo red breathing. ABDOMEN/GI: Bowel sounds present in all 4 quadrants. No tenderness to palpation throughout. NEUROLOGICAL: Higher mental function: The patient is awake, alert, oriented to self, place and time. Patient is following commands. No aphasia and no neglect. Cranial nerves: The pupils are round, equal and reactive to light and accommodation. Visual chaves are full to confrontation throughout. Extraocular movement is intact no nystagmus is noted. Facial sensation is normal to touch t hroughout. The facial strength is normal throughout. Hearing is normal bilaterally to hand rub. Tongue is midline and moved [id number] without any difficulty. No dysarthria is noted. Shoulder shrug is normal bilaterally. Motor: Gait is normal with normal arms swings. The strength is 5 over 5 throughout. Normal tone and bulk. Cerebellum: Normal finger to nose bilaterally. Sensation: Sensation is normal to touch throughout. Reflexes (right/left): 2+ throughout. Plantars are downgoing bilaterally. Results - Laboratory Findings CBC and BMP: 01/15/21 07:15 01/15/21 07:15 Abnormal Lab Findings: Abnormal Labs 01/14/21 01/14/21 01/15/21 11:17 19:00 07:15 Glucose 150 H Cholesterol 202 H LDL Cholesterol, Calc 138 H Urine Appearance Cloudy H Ur Leukocyte Esterase Large H Urine WBC 8 H Ur Squamous Epith Cells 5 H Amorphous Sediment Rare H Urine Bacteria Rare H Urine Mucus Rare H Assessment and Plan Assessment: Transient episode of left upper extremity numbness with left neck pain and shoulder (Episode lasted for 1/2 hour). Exact etiology unknown. Episode possibly due to atypical radiculopathy vs seizure (focal seizure without loss of awareness, since had episode of left eye and upper lip twitching a month ago that was intermittent). History of dysautonomia with episode of syncope Palpitation History of PTSD Generalized anxiety disorder History of covert in September 2020 Plan: CT of the head is reported as no acute intracranial process seen at this time. Carotid duplex is reported as no atherosclerotic changes. No significant linda ocity elevation bilateral internal carotid arteries. Echocardiogram is reported as left ventricular size is normal. Borderline concentric left ventricular hypertrophy. Ejection fraction of 55-60%. TSH of 1.84 which is normal. Lipid panel: Triglyceride 96, cholesterol 202, LDL of 138 and HDL 45. The sodium was 139 which is normal. The calcium is 9.6 which is normal. I recommend MRI the brain w/ and w/o (seizure protocol) and MRI the cervical spine. I also recommend the routine EEG. I recommend getting vitamin B12, folate, vitamin B6. The patient stated that the she would like to get the the workup as an outpatient and she'll follow up with a neurologist. She was notified that she has any further episodes to come back to the emergency department stat. A shunt initial follow-up with a neurologist within 1-2 weeks as an outpatient. There is no further workup needed at this time. The plan was discussed with the patient as well as the patient's nurse. Thank you for the consultation. Semaj Knight MD Neuro-Hospitalist Time with Patient: Greater than 30
--- NOTE | 2021-01-17 09:27 | DS ---
DISCHARGE SUMMARY DATE OF ADMISSION: 01/14/2021 DATE OF DISCHARGE: 01/15/2021 FINAL DIAGNOSIS: 1. Possible left arm radiculopathy. 2. Sinus tachycardia from anxiety. 3. Posttraumatic stress disorder. 4. Anxiety disorder, uncontrolled. CONSULTATIONS: 1. Dr. Knight from Neurology. 2. Dr. Kelley from Cardiology. HOSPITAL COURSE: This pleasant 40-year-old patient presented through the ER. The patient has a history of questionable dysautonomia, PTSD, anxiety. Presented with some palpitation and discomfort of the left arm. She has been rather anxious and gets very easily so. She also had some neck pain and left shoulder pain. She felt the left upper extremity was slightly numb. The patient's EKG did show sinus tachycardia and 2D echocardiogram showed the EF of 55-60%. No other abnormality reported. CT scan of the brain nil acute. Carotid Doppler nil significant. The patient was seen by the neurology Dr. Knight. He discussed with the patient. He wants the patient to have an outpatient MRI and EEG and patient was told to return if the symptoms recur. The patient's heart rate was better controlled when anxiety came down. The patient's coronavirus was negative. LDL 138. Other labs unremarkable. Troponins were negative. Discussion with the patient and discussion with Dr. Knight from Neurology. PHYSICAL EXAMINATION: Temperature 98.5, pulse 96, respiration 18, blood pressure 115/71, pulse ox 98% on room air. Lungs fair entry. Cardiovascular first and second sounds normal. Neuro exam negative. DISCHARGE MEDICATIONS: Aviane 1 tablet p.o. daily, Ativan 1 mg daily p.r.n., Pristiq ER 100 mg p.o. daily. FOLLOWUP: Follow up with Dr. Mendez in 1-2 days. Follow up with Dr. Dickey in 1 week. Follow up with Cardiology p.r.n. Discharge planning more than 35 minutes. MMODL / IJN: [id number] /
== END 2021-01-15 14:15 | disposition home or self-care (01) ==
LOC: EC 10:33 → 3SCARD 12:33 → INTOOBSV 12:33 → 3SCARD 13:31 → UNDODISIN 01-15 14:15
PROVIDERS: ADMIT Hospitalist; ATTEND Hospitalist
DX: F41.1 Generalized anxiety disorder (principal); F32.9 Major depressive disorder, single episode, unspecified; G90.1 Familial dysautonomia [Riley-Day]; F43.10 Post-traumatic stress disorder, unspecified; G43.909 Migraine, unspecified, not intractable, without status migrainosus; R00.0 Tachycardia, unspecified; M54.10 Radiculopathy, site unspecified; Z20.822 Contact with and (suspected) exposure to COVID-19; I07.1 Rheumatic tricuspid insufficiency; I51.7 Cardiomegaly; M25.512 Pain in left shoulder; M54.2 Cervicalgia; Z79.3 Long term (current) use of hormonal contraceptives; Z79.899 Other long term (current) drug therapy; Z86.16 Personal history of COVID-19; Z87.19 Personal history of other diseases of the digestive system; Z98.890 Other specified postprocedural states; Z82.49 Family history of ischemic heart disease and other diseases of the circulatory system; Z83.49 Family history of other endocrine, nutritional and metabolic diseases
CPT/HCPCS: 96361 ×2; 93005 ×2; 96374; 99285; 36415; 93306; 85379; 83880; 80061; 80053; 80048; 84443; 83735; 84484; 85025 ×2; 85610; 85730; 81001; 81025; 87635; 71046; 93880; 70450; G0378 ×2; J2060

== ENCOUNTER → 2021-02-25 | Outpatient (CLI) | payer OTHER ==
[2021-02-25 20:07] LABS: Luteinizing Hormone 5.5 mIU/mL; Prolactin 8.3 ng/mL (2.8-29.2)
[2021-02-25 20:08] LABS: Estradiol 48.1 pg/mL; Follicle Stimulating Hormone 5.4 mIU/mL
== END | disposition home or self-care (01) ==
LOC: LABWHC1 12:00
PROVIDERS: ATTEND Obstetrics & Gynecology
DX: N91.2 Amenorrhea, unspecified (principal)
CPT/HCPCS: 36415; 82670; 83001; 83002; 84144; 84146; 84403

== ENCOUNTER → 2023-06-05 | Outpatient (CLI) | payer BC, OTHER ==
--- NOTE | 2023-06-06 19:50 | MM ---
Reason for Exam: Screening (asymptomatic). Baseline mammogram. Patient History: Menarche at age 15. First Full-Term at age 24. Premenopausal. Currently using Hormonal Contraceptives, starting at age 18. Last menstrual period: 05/29/2023 Risk Values: Chelle 5 year model risk: 0.5%. NCI Lifetime model risk: 9.0%. Prior Study Comparison: Patient's first Mammogram. Tissue Density: The breast tissue is extremely dense which could obscure a lesion on mammography. Findings: Analyzed By CAD. There is no suspicious group of microcalcifications, significant suspicious mass, or other discrete abnormality in either breast. Overall Assessment: Negative, BI-RAD 1 Management: Screening Mammogram of both breasts in 1 year. Given the extremely dense breast tissue, considered supplementary screening with breast ultrasound. Patient should continue monthly self-breast exams. A clinical breast exam by your physician is recommended on an annual basis. This exam should not preclude additional follow-up of suspicious palpable abnormalities. Note on Chelle scores and lifetime risk: 1. A Chelle score greater than 3% is considered moderate risk. If this is the case, consider specialist referral to assess eligibility for a risk reducing agent. 2. If overall lifetime risk for the development of breast cancer is 20% or higher, the patient may qualify for future screening with alternating mammogram and breast MRI. Electronically signed and approved by: James Parish M.D. Radiologist
== END | disposition home or self-care (01) ==
LOC: RADMAMWWP 15:15
PROVIDERS: ATTEND Obstetrics & Gynecology
DX: Z12.31 Encounter for screening mammogram for malignant neoplasm of breast (principal)
CPT/HCPCS: 77063; 77067

== ENCOUNTER 2023-11-16 13:31 | Emergency (ER) | payer BC, OTHER ==
[2023-11-16] MEDS ORDERED: SODIUM CHLORIDE 0.9% 1,000 ML IV STA (14:23)
--- NOTE | 2023-11-16 14:25 | ED ---
General Adult HPI - General Chief complaint: Arrhythmia/Palpitations Stated complaint: Chest Pain Time Seen by Provider: 11/16/23 14:14 Source: patient, RN notes reviewed, old records reviewed Mode of arrival: ambulatory - History of Present Illness Initial comments: 43-year-old female with tachycardia, palpitations. History of pots syndrome. Patient does not feel specifically anxious. She has a vague right upper chest discomfort. No vomiting. No fever. She's had congestion and cold symptoms over the past several days. - Related Data Home Medications Medication Instructions Recorded Confirmed LORazepam [Ativan] 1 mg PO DAILY PRN 04/26/19 11/16/23 Desvenlafaxine [Pristiq ER] 100 mg PO DAILY@0700 10/13/20 11/16/23 Acetaminophen Tab [Tylenol Tab] 1,000 mg PO Q6HR PRN 11/16/23 11/16/23 Ibuprofen [Motrin Ib] 400 mg PO Q8H PRN 11/16/23 11/16/23 Levonorgestrel/Ethin.estradiol 1 tab PO DAILY@0700 11/16/23 11/16/23 [Lutera-28 Tablet] Metoprolol Succinate [Metoprolol 25 mg PO DAILY@0700 11/16/23 11/16/23 Succinate ER] Allergies Allergy/AdvReac Type Severity Reaction Status Date / Time No Known Allergies Allergy Verified 11/16/23 14:52 Review of Systems ROS Statement: Those systems with pertinent positive or pertinent negative responses have been documented in the HPI. ROS Other: All systems not noted in ROS Statement are negative. Past Medical History Additional Past Medical History / Comment(s): dysautonomia History of Any Multi-Drug Resistant Organisms: None Reported Past Surgical History: Hernia Repair Past Psychological History: Anxiety, PTSD Smoking Status: Never smoker Past Alcohol Use History: None Reported Past Drug Use History: None Reported - Past Family History Father Family Medical History: Hyperlipidemia, Hypertension Mother Family Medical History: Hyperlipidemia, Myocardial Infarction (ID) Additional Family Medical History / Comment(s): HC with stents General Exam General appearance: alert, in no apparent distress Head exam: Present: atraumatic, normocephalic Eye exam: Present: normal appearance, PERRL ENT exam: Present: normal exam Neck exam: Present: normal inspection. Absent: tenderness, meningismus Respiratory exam: Present: normal lung sounds bilaterally. Absent: respiratory distress, wheezes Cardiovascular Exam: Present: normal rhythm, tachycardia GI/Abdominal exam: Present: soft. Absent: distended, tenderness, guarding Extremities exam: Present: normal inspection, normal capillary refill. Absent: pedal edema, calf tenderness Neurological exam: Present: alert, oriented X3 Psychiatric exam: Present: normal affect, normal mood Skin exam: Present: warm, dry, intact Course Vital Signs 11/16/23 11/16/23 13:36 15:53 Temperature 99.1 F Pulse Rate 145 H 100 Respiratory 20 20 Rate Blood Pressure 175/92 134/91 O2 Sat by Pulse 99 100 Oximetry Medical Decision Making - Medical Decision Making Was pt. sent in by a medical professional or institution (, PA, ARRANGER ASSEMBLER, urgent care, hospital, or assisted...) When possible be specific @ -[No] Did you speak to anyone other than the patient for history (EMS, parent, family, police, friend...)? What history was obtained from this source @ -[No] Did you review nursing and triage notes (agree or disagree)? Why? @ -[I reviewed and agree with nursing and triage notes] Were old charts reviewed (outside hosp., previous admission, EMS record, old EKG, old radiological studies, urgent care reports/EKG's, assisted records)? Report findings @ -[No old charts were reviewed] Differential Diagnosis (chest pain, altered mental status, abdominal pain women, abdominal pain men, vaginal bleeding, weakness, fever, dyspnea, syncope, headache, dizziness, GI bleed, back pain, seizure, CVA, palpatations, mental health, musculoskeletal)? @ -[Differential Palpitations Ventricular arrhythmias, atrial arrhythmias, myocardial infarction, anemia, thyrotoxicosis, electrolyte imbalance, hypokalemia, pulmonary embolism, pulmonary disease, drugs, alcohol, anxiety, stress.... This is not meant to be an all-inclusive list. EKG interpreted by me (3pts min.). @ -[Sinus tachycardia rate of 125, RI interval 100, QRS duration 82, QTC [address] segment elevation. X-rays interpreted by me (1pt min.). @Chest x-ray negative for acute cardiopulmonary findings CT interpreted by me (1pt min.). @ -[None done] U/S interpreted by me (1pt. min.). @ -[None done] What testing was considered but not performed or refused? (CT, X-rays, U/S, labs)? Why? @ -[None] What meds were considered but not given or refused? Why? @ -[None] Did you discuss the management of the patient with other professionals (professionals i.e. , PA, ARRANGER ASSEMBLER, lab, RT, psych nurse, social work job titles, security flex utility officer, teacher, chief sustainability officer, caser in)? Give summary @ -[No] Was smoking cessation discussed for >3mins.? @ -[No] Was critical care preformed (if so, how long)? @ -[No] Were there social determinants of health that impacted care today? How? (Homelessness, low income, unemployed, alcoholism, drug addiction, transportation, low edu. Level, literacy, decrease access to med. care, care home, rehab)? @ -[No] Was there de-escalation of care discussed even if they declined (Discuss DNR or withdrawal of care, Hospice)? DNR status @ -[No] What co-morbidities impacted this encounter? (DM, HTN, Smoking, COPD, CAD, Cancer, CVA, ARF, Chemo, Hep., AIDS, mental health diagnosis, sleep apnea, morbid obesity)? @ -[History of POTS syndrome Was patient admitted / discharged? Hospital course, mention meds given and route, prescriptions, significant lab abnormalities, going to OR and other pertinent info. @ -[[id number] female with palpitations, racing heart. EKG shows heart rate in the 120s which is sinus tachycardia. I performed a thorough workup on this patient including chest x-ray, EKG, CBC, CMP, d-dimer, troponin, urinalysis and viral testing. Patient does test positive for coronavirus having upper respiratory symptoms for the past several days. This is likely the cause of her tachycardia. She is otherwise well-appearing, heart rate into the 90s after IV fluids. Patient stable for discharge at this time. Undiagnosed new problem with uncertain prognosis? @ -[No] Drug Therapy requiring intensive monitoring for toxicity (Heparin, Nitro, Insulin, Cardizem)? @ -[No] Were any procedures done? @ -[No] Diagnosis/symptom? @ -[Tachycardia, palpitation, coronavirus Acute, or Chronic, or Acute on Chronic? @Acute Uncomplicated (without systemic symptoms) or Complicated (systemic symptoms)? @ -[Complicated Side effects of treatment? @ -[No] Exacerbation, Progression, or Severe Exacerbation? @ -[No] Poses a threat to life or bodily function? How? (Chest pain, USA, ID, pneumonia, PE, COPD, DKA, ARF, appy, cholecystitis, CVA, Diverticulitis, Homicidal, Suicidal, threat to staff... and all critical care pts) @Low risk at this time - Lab Data Result diagrams: 11/16/23 15:10 11/16/23 15:10 Lab Results 11/16/23 11/16/23 11/16/23 Range/Units 15:10 15:10 15:10 WBC 9.0 (3.8-10.6) k/uL RBC 4.51 (3.80-5.40) m/uL Hgb 13.8 (11.4-16.0) gm/dL Hct 41.8 (34.0-46.0) % MCV 92.6 (80.0-100.0) fL MCH 30.7 (25.0-35.0) pg MCHC 33.1 (31.0-37.0) g/dL RDW 12.1 (11.5-15.5) % Plt Count 257 (150-450) k/uL MPV 7.6 Neutrophils % 81 % Lymphocytes % 14 % Monocytes % 3 % Eosinophils % 1 % Basophils % 0 % Neutrophils # 7.3 (1.3-7.7) k/uL Lymphocytes # 1.3 (1.0-4.8) k/uL Monocytes # 0.3 (0-1.0) k/uL Eosinophils # 0.1 (0-0.7) k/uL Basophils # 0.0 (0-0.2) k/uL PT 10.2 (10.0-12.5) sec INR 0.9 (<1.2) APTT 22.4 (22.0-30.0) sec D-Dimer <0.17 (<0.60) mg/L FEU Sodium (137-145) mmol/L Potassium (3.5-5.1) mmol/L Chloride (98-107) mmol/L Carbon Dioxide (22-30) mmol/L Anion Gap mmol/L BUN (7-17) mg/dL Creatinine (0.52-1.04) mg/dL Est GFR (CKD-EPI)AfAm (>60 ml/min/1.73 sqM) Est GFR (CKD-EPI)NonAf (>60 ml/min/1.73 sqM) Glucose (74-99) mg/dL Calcium (8.4-10.2) mg/dL Magnesium (1.6-2.3) mg/dL Total Bilirubin (0.2-1.3) mg/dL AST (14-36) U/L ALT (4-34) U/L Alkaline Phosphatase (38-126) U/L Troponin I (0.000-0.034) ng/mL Total Protein (6.3-8.2) g/dL Albumin (3.5-5.0) g/dL Urine Color Light Yellow Urine Appearance Cloudy H (Clear) Urine pH 7.0 (5.0-8.0) Ur Specific [place] 1.019 (1.001-1.035) Urine Protein Negative (Negative) Urine Glucose (UA) Negative (Negative) Urine Ketones Negative (Negative) Urine Blood Negative (Negative) Urine Nitrite Negative (Negative) Urine Bilirubin Negative (Negative) Urine Urobilinogen <2.0 (<2.0) mg/dL Ur Leukocyte Esterase Negative (Negative) Urine RBC <1 (0-5) /hpf Urine WBC 1 (0-5) /hpf Ur Squamous Epith Cells 6 H (0-4) /hpf Urine Bacteria Occasional H (None) /hpf Hyaline Casts 3 H (0-2) /lpf Urine Mucus Many H (None) /hpf Influenza Type A (PCR) (Not Detectd) Influenza Type B (PCR) (Not Detectd) RSV (PCR) (Not Detectd) SARS-CoV-2 (PCR) (Not Detectd) 11/16/23 11/16/23 11/16/23 Range/Units 15:10 15:10 15:10 WBC (3.8-10.6) k/uL RBC (3.80-5.40) m/uL Hgb (11.4-16.0) gm/dL Hct (34.0-46.0) % MCV (80.0-100.0) fL MCH (25.0-35.0) pg MCHC (31.0-37.0) g/dL RDW (11.5-15.5) % Plt Count (150-450) k/uL MPV Neutrophils % % Lymphocytes % % Monocytes % % Eosinophils % % Basophils % % Neutrophils # (1.3-7.7) k/uL Lymphocytes # (1.0-4.8) k/uL Monocytes # (0-1.0) k/uL Eosinophils # (0-0.7) k/uL Basophils # (0-0.2) k/uL PT (10.0-12.5) sec INR (<1.2) APTT (22.0-30.0) sec D-Dimer (<0.60) mg/L FEU Sodium 139 (137-145) mmol/L Potassium 4.4 (3.5-5.1) mmol/L Chloride 104 (98-107) mmol/L Carbon Dioxide 24 (22-30) mmol/L Anion Gap 11 mmol/L BUN 14 (7-17) mg/dL Creatinine 0.59 (0.52-1.04) mg/dL Est GFR (CKD-EPI)AfAm >90 (>60 ml/min/1.73 sqM) Est GFR (CKD-EPI)NonAf >90 (>60 ml/min/1.73 sqM) Glucose 91 (74-99) mg/dL Calcium 9.4 (8.4-10.2) mg/dL Magnesium 2.0 (1.6-2.3) mg/dL Total Bilirubin 0.5 (0.2-1.3) mg/dL AST 26 (14-36) U/L ALT 11 (4-34) U/L Alkaline Phosphatase 50 (38-126) U/L Troponin I <0.012 (0.000-0.034) ng/mL Total Protein 7.5 (6.3-8.2) g/dL Albumin 4.4 (3.5-5.0) g/dL Urine Color Urine Appearance (Clear) Urine pH (5.0-8.0) Ur Specific [place] (1.001-1.035) Urine Protein (Negative) Urine Glucose (UA) (Negative) Urine Ketones (Negative) Urine Blood (Negative) Urine Nitrite (Negative) Urine Bilirubin (Negative) Urine Urobilinogen (<2.0) mg/dL Ur Leukocyte Esterase (Negative) Urine RBC (0-5) /hpf Urine WBC (0-5) /hpf Ur Squamous Epith Cells (0-4) /hpf Urine Bacteria (None) /hpf Hyaline Casts (0-2) /lpf Urine Mucus (None) /hpf Influenza Type A (PCR) Not Detected (Not Detectd) Influenza Type B (PCR) Not Detected (Not Detectd) RSV (PCR) Not Detected (Not Detectd) SARS-CoV-2 (PCR) Detected A (Not Detectd) Disposition Clinical Impression: Palpitations, Tachycardia, COVID-19 Disposition: HOME SELF-CARE Condition: Good Instructions (If sedation given, give patient instructions): Heart Palpitations (ED), COVID-19 (Coronavirus Disease 2019) (ED) Is patient prescribed a controlled substance at d/c from ED?: No Referrals: Andreas Mendez DO [Primary Care Provider] - 1-2 days Time of Disposition: 16:27
[2023-11-16 15:25] LABS: Basophils % (A) 0 %; Eosinophils # (A) 0.1 k/uL (0-0.7); Eosinophils % (A) 1 %; HCT 41.8 % (34.0-46.0); HGB 13.8 gm/dL (11.4-16.0); Lymphocytes # (A) 1.3 k/uL (1.0-4.8); Lymphocytes % (A) 14 %; MCH 30.7 pg (25.0-35.0); MCHC 33.1 g/dL (31.0-37.0); MCV 92.6 fL (80.0-100.0); Mean Platelet Volume 7.6; Monocytes # (A) 0.3 k/uL (0-1.0); Monocytes % (A) 3 %; Neutrophils # (A) 7.3 k/uL (1.3-7.7); Neutrophils % (A) 81 %; Platelet Count 257 k/uL (150-450); RBC 4.51 m/uL (3.80-5.40); RDW 12.1 % (11.5-15.5)
[2023-11-16 15:36] LABS: INR 0.9 (<1.2); Partial Thromboplastin Time 22.4 sec (22.0-30.0); Prothrombin Time 10.2 sec (10.0-12.5)
--- NOTE | 2023-11-16 15:36 | XR ---
EXAMINATION TYPE: XR chest 2V DATE OF EXAM: 11/16/2023 COMPARISON: NONE HISTORY: Tachycardia. TECHNIQUE: Frontal and lateral views of the chest are obtained. FINDINGS: There is no focal air space opacity, pleural effusion, or pneumothorax seen. The cardiac silhouette size is within normal limits. The osseous structures are intact. IMPRESSION: No acute cardiopulmonary process.
[2023-11-16 15:50] LABS: ALT 11 U/L (4-34); AST 26 U/L (14-36); African American GFR (CKD) >90 (>60 ml/min/1.73 sqM); Albumin 4.4 g/dL (3.5-5.0); Alkaline Phosphatase 50 U/L (38-126); Anion Gap 11 mmol/L; Blood Urea Nitrogen 14 mg/dL (7-17); Calcium 9.4 mg/dL (8.4-10.2); Carbon Dioxide 24 mmol/L (22-30); Chloride 104 mmol/L (98-107); Glucose 91 mg/dL (74-99); Non-African American GFR(CKD) >90 (>60 ml/min/1.73 sqM); Potassium 4.4 mmol/L (3.5-5.1); Sodium 139 mmol/L (137-145); Total Bilirubin 0.5 mg/dL (0.2-1.3); Total Protein 7.5 g/dL (6.3-8.2)
[2023-11-16 16:15] LABS: Appearance,Urine Cloudy (Clear); Bacteria,Urine Occasional /hpf; Bilirubin,Urine Negative (Negative); Blood,Urine Negative (Negative); Color,Urine Light Yellow; Glucose,Urine (UA) Negative (Negative); Hyaline Casts,Urine 3 /lpf (0-2); Ketones,Urine Negative (Negative); Leukocyte Esterase,Urine Negative (Negative); Mucus,Urine Many /hpf; Nitrite,Urine Negative (Negative); Protein,Urine Negative (Negative); RBC,Urine <1 /hpf (0-5); Specific Gravity,Urine 1.019 (1.001-1.035); Squamous Epithelial Cell,Urine 6 /hpf (0-4); Urobilinogen,Urine <2.0 mg/dL (<2.0); WBC,Urine 1 /hpf (0-5)
[2023-11-16 17:30] VITALS: BP 122/88; PULSE 101; RESP 18; TEMP 98.4
== END 2023-11-16 18:02 | disposition home or self-care (01) ==
LOC: EC 13:31
DX: U07.1 COVID-19 (principal); R00.0 Tachycardia, unspecified; R00.2 Palpitations; F41.9 Anxiety disorder, unspecified; Z79.899 Other long term (current) drug therapy
CPT/HCPCS: 36415; 71046; 80053; 81001; 83735; 84484; 85025; 85379; 85610; 85730; 87636; 93005; 96360; 99285